=== PATIENT | female | born 1965 | race Caucasian/White ===

== ENCOUNTER 2020-03-04 10:09 | Outpatient (CLI) | payer BC ==
[2020-03-04] MEDS ORDERED: BARIUM SULFATE 135 ML SUSP.RECON (E-Z-HD) PO ONE (10:52)
== END 2020-03-04 20:08 | disposition home or self-care (01) ==
LOC: SRD 10:09
PROVIDERS: ATTEND Otolaryngology Plastic Surgery within the Head & Neck
DX: K44.9 Diaphragmatic hernia without obstruction or gangrene (principal); R13.10 Dysphagia, unspecified
CPT/HCPCS: 74220-TC